=== PATIENT | male | born 1990 | race African-American/Black ===

== ENCOUNTER 2022-05-18 19:13 | Emergency (ER) | payer MEDICAID, OTHER ==
[~2022-05-18] VITALS: Ht 182.9 cm; Wt 81.0 kg
[2022-05-18 20:51] VITALS: BP 123/83
[2022-05-18 20:51] LABS: BASOPHILS % 0.7 % (0.0-2.0); EOSINOPHILS % 1.5 % (0.0-5.0); HEMATOCRIT. 38.8 % (42.0-52.0); LYMPHOCYTES % 14.2 % (20.0-50.0); MEAN CORPUSCULAR HEMOGLOBIN 33.6 pg (28.0-32.0); MEAN CORPUSCULAR VOLUME 100.3 fL (80.0-94.0); MEAN PLATELET VOLUME 7.9 fl (7.4-10.4); MONOCYTES % 10.1 % (2.0-8.0); NEUTROPHILS % 73.5 % (40.0-76.0); PLATELET 134 x1000/uL (130-400); RED BLOOD CELL COUNT 3.86 mill/uL (4.7-6.1); RED CELL DISTRIBUTION WIDTH 16.9 % (11.6-14.6)
[2022-05-18 20:59] LABS: CHLORIDE 100 mEq/L (98-107)
[2022-05-18 21:07] LABS: ETHANOL BLOOD < 10 mg/dL
== END 2022-05-18 22:54 | disposition home or self-care (01) ==
LOC: ER 19:13
DX: R56.9 Unspecified convulsions (principal)
CPT/HCPCS: 36415; 80053; 80320; 82962; 85025; 99284; G0480

== ENCOUNTER 2025-01-19 14:23 | Emergency (ER) | payer MEDICAID, OTHER ==
[~2025-01-19] VITALS: Ht 180.3 cm; Wt 86.0 kg
[2025-01-19 14:26] VITALS: O2SAT 100
[2025-01-19 20:34] VITALS: BP 136/90; PULSE 100; RESP 20; TEMP 36.7; O2SAT 97
== END 2025-01-19 20:43 | disposition home or self-care (01) ==
LOC: ER 14:25
DX: F10.129 Alcohol abuse with intoxication, unspecified (principal); I10 Essential (primary) hypertension; Y90.9 Presence of alcohol in blood, level not specified
CPT/HCPCS: 99283

== ENCOUNTER 2025-02-05 11:56 | Emergency (ER) | payer MEDICAID ==
[~2025-02-05] VITALS: Ht 177.8 cm; Wt 77.1 kg
[2025-02-05 11:58] VITALS: BP 125/74; PULSE 106; RESP 16; TEMP 37; O2SAT 99
[2025-02-05] MEDS ORDERED: KETOROLAC 30MG/ML VIAL IM ONE (12:30)
[2025-02-05] MEDS: OXYCODONE HCL/ACETAMINOPHEN 5/325MG TABLET PO ONE (12:39)
[2025-02-05] MEDS ORDERED: IBUP-2030 MT (13:45)
== END 2025-02-05 13:56 | disposition home or self-care (01) ==
LOC: ER 11:56
DX: M25.462 Effusion, left knee (principal); I10 Essential (primary) hypertension
CPT/HCPCS: 99283; 73562; J1885